=== PATIENT | female | born 1935 | race Caucasian/White ===

== ENCOUNTER 2017-12-20 17:21 | Emergency (ER) | payer OTHER ==
[~2017-12-20] VITALS: Ht 170.2 cm; Wt 56.7 kg
[~2017-12-20 17:21] MED LIST: "\\\"CHOLESTEROL MED\\\""; ACET325; ASPI81EC; CEPH500 PO; CETI10 PO; Cyclobenzaprine5 MG PO; GABAPENTIN; HYDACE5 PO; HYDHCL10; Naprosyn375 MG PO; PREG25; RXCEPH500 PO; TOPI25
[2017-12-20] MEDS ORDERED: Valtrex1000 MG PO (17:41)
== END 2017-12-20 18:08 | disposition home or self-care (01) ==
LOC: ER 17:21
DX: B02.9 Zoster without complications (principal)
CPT/HCPCS: 99282

== ENCOUNTER 2018-10-04 17:40 | Emergency (ER) | payer OTHER ==
[~2018-10-04] VITALS: Ht 170.2 cm; Wt 54.4 kg
[~2018-10-04 17:40] MED LIST changes: +Valtrex1000 MG PO
[2018-10-04] MEDS ORDERED: CLOBET30L TOP (18:28)
[2018-10-05] MEDS ORDERED: KETO15TC TOP (18:51)
[2018-10-05] MEDS ORDERED: Neurontin 100100 MG PO (18:51)
== END 2018-10-04 18:34 | disposition home or self-care (01) ==
LOC: ER 17:40
DX: B35.4 Tinea corporis (principal); Z79.899 Other long term (current) drug therapy
CPT/HCPCS: 99282

== ENCOUNTER 2018-10-05 17:58 | Emergency (ER) | payer OTHER, SELFPAY ==
[~2018-10-05] VITALS: Ht 170.2 cm; Wt 77.6 kg
[~2018-10-05 17:58] MED LIST changes: +CLOBET30L TOP
[2018-10-05] MEDS ORDERED: KETO15TC TOP (18:51)
[2018-10-05] MEDS ORDERED: Neurontin 100100 MG PO (18:51)
== END 2018-10-05 18:56 | disposition home or self-care (01) ==
LOC: ER 17:58
DX: B35.4 Tinea corporis (principal); B02.29 Other postherpetic nervous system involvement; L98.9 Disorder of the skin and subcutaneous tissue, unspecified; Z79.899 Other long term (current) drug therapy
CPT/HCPCS: 99281

== ENCOUNTER 2018-11-17 11:09 | Emergency (ER) | payer OTHER, SELFPAY ==
[~2018-11-17] VITALS: Ht 170.2 cm; Wt 56.7 kg
[~2018-11-17 11:09] MED LIST changes: +KETO15TC TOP; +Neurontin 100100 MG PO
== END 2018-11-17 11:51 | disposition home or self-care (01) ==
LOC: ER 11:09
DX: L57.0 Actinic keratosis (principal); L81.4 Other melanin hyperpigmentation; Z79.899 Other long term (current) drug therapy
CPT/HCPCS: 99283

== ENCOUNTER 2019-01-03 19:58 | Observation (INO) | payer OTHER ==
[~2019-01-03] VITALS: Ht 170.2 cm; Wt 55.8 kg
[2019-01-03 20:39] LABS: BASOPHILS ABSOLUTE AUTO 0.04 K/mm3 (0.00-0.23); BASOPHILS PERCENT AUTO 1 % (0-2); EOSINOPHILS ABSOLUTE AUTO 0.01 K/mm3 (0.00-0.68); EOSINOPHILS PERCENT AUTO 0 % (0-6); Hematocrit 33.8 % (33.0-51.0); IMMATURE GRAN ABSOLUTE AUTO 0.01 K/mm3 (0.00-0.10); IMMATURE GRAN PERCENT AUTO 0 % (0-1); LYMPHOCYTES ABSOLUTE AUTO 0.75 K/mm3 (0.84-5.20); LYMPHOCYTES PERCENT AUTO 9 % (21-46); MONOCYTES ABSOLUTE AUTO 0.51 K/mm3 (0.16-1.47); MONOCYTES PERCENT AUTO 6 % (4-13); Mean Corpuscular HGB 31.3 pg (26.0-34.0); Mean Corpuscular HGB Conc 32.5 g/dL (31.5-36.5); Mean Corpuscular Volume 96 fL (80-100); Mean Platelet Volume 9.2 fL (9.1-12.4); NEUTROPHILS ABSOLUTE AUTO 7.32 K/mm3 (1.96-9.15); NEUTROPHILS PERCENT AUTO 85 % (41-73); Platelet Count 163 K/mm3 (150-400); RDW Coefficient Variation 12.4 % (11.7-14.2); RDW Standard Deviation 43.3 fL (35.1-46.3); Red Blood Cell Count 3.52 M/mm3 (3.80-5.20); White Blood Cell Count 8.64 K/mm3 (4.00-11.30)
[2019-01-03 20:59] LABS: Alanine Aminotransfer (ALT/SGP 28 U/L (12-78); Albumin, Blood 3.5 g/dL (3.4-5.0); Albumin/Globulin Ratio 0.8 (0.8-1.8); Alk Phos 107 U/L (50-136); Anion Gap 8 mmol/L (6-16); Aspartate Aminotrans (AST/SGOT 35 U/L (12-37); Bilirubin, Total 0.3 mg/dL (0.1-1.0); Blood Urea Nitrogen 19 mg/dL (8-24); Bun/Creatinine Ratio 23.4 (12.0-20.0); CO2, Blood 26 mmol/L (21-32); CPK Creatine Kinase 624 U/L (26-193); Calcium, Blood 8.8 mg/dL (8.5-10.1); Chloride, Blood 101 mmol/L (98-108); Creatinine, Blood 0.81 mg/dL (0.40-1.00); Globulin, Blood 4.3 g/dL (2.2-4.0); Glomerular Filtration Rate >60 (60-); Glucose, Blood 144 mg/dL (70-99); Potassium, Blood 3.7 mmol/L (3.5-5.5); Sodium, Blood 135 mmol/L (136-145); Total Protein, Blood 7.8 g/dL (6.4-8.2); Troponin I <0.015 ng/mL (0.000-0.040)
[2019-01-03 21:09] LABS: Source, Urine Catheter
[2019-01-03 21:13] LABS: Bilirubin, Urine Neg (Neg); Blood, Urine Neg (Neg); Glucose Qualitative, Urine Neg (Neg); Ketones, Urine Neg (Neg); Leukocyte Esterase, Urine Neg (Neg); Nitrite, Urine Neg (Neg); Protein, Urine Neg (Neg); Urobilinogen, Urine NORM (Normal); pH, Urine 6.5 (5.0-8.0)
[2019-01-03 21:13] LABS: Creatine Kinase MB 18.8 ng/mL (0.0-3.6)
[2019-01-03 21:23] LABS: Appearance, Urine Clear (Clear); Color, Urine Yellow (P-Yellow)
--- NOTE | 2019-01-04 00:54 | NUR ---
Transfer report from Shira DAVILA on PT being admitted after multiple falls at home, lives alone. PT was found down by Son 24 hours after he saw her well at 1800. PT will have tele monitoring, PT, OT, SW referral. Await admission. PT reported to have multiple requests for warm blankets and has cool extremity. DX mild rhabdo.
[2019-01-04 06:36] LABS: Hematocrit 30.2 % (33.0-51.0); Hemoglobin 10.1 g/dL (11.5-16.0); Mean Corpuscular HGB 31.2 pg (26.0-34.0); Mean Corpuscular HGB Conc 33.4 g/dL (31.5-36.5); Mean Platelet Volume 9.2 fL (9.1-12.4); Platelet Count 143 K/mm3 (150-400); RDW Coefficient Variation 12.4 % (11.7-14.2); RDW Standard Deviation 42.5 fL (35.1-46.3); Red Blood Cell Count 3.24 M/mm3 (3.80-5.20); White Blood Cell Count 5.56 K/mm3 (4.00-11.30)
[2019-01-04 06:55] LABS: Alanine Aminotransfer (ALT/SGP 21 U/L (12-78); Albumin/Globulin Ratio 0.9 (0.8-1.8); Alk Phos 90 U/L (50-136); Anion Gap 7 mmol/L (6-16); Aspartate Aminotrans (AST/SGOT 30 U/L (12-37); Bilirubin, Total 0.2 mg/dL (0.1-1.0); Blood Urea Nitrogen 16 mg/dL (8-24); Bun/Creatinine Ratio 19.6 (12.0-20.0); CO2, Blood 25 mmol/L (21-32); Calcium, Blood 8.2 mg/dL (8.5-10.1); Chloride, Blood 108 mmol/L (98-108); Creatinine, Blood 0.82 mg/dL (0.40-1.00); Globulin, Blood 3.4 g/dL (2.2-4.0); Glomerular Filtration Rate >60 (60-); Glucose, Blood 114 mg/dL (70-99); Potassium, Blood 3.6 mmol/L (3.5-5.5); Sodium, Blood 140 mmol/L (136-145); Total Protein, Blood 6.4 g/dL (6.4-8.2)
[2019-01-04 07:00] LABS: Mean Corpuscular Volume 93 fL (80-100)
--- NOTE | 2019-01-04 07:21 | NUR ---
83 YEAR OLD fEMALE ADMITTED WITH MULTIPLE FALLS, FOUND DOWN FOR UNKNOWN LEGHT OF TIME AND PT VERY POOR HISTORIAN. sHE IS ON IV FLUIDS TOLERATED WITHOUT NAUSEA. MULTIPLE REQUESTS, WANTS TO HAVE 1 ON 1.V REORIENTED
--- NOTE | 2019-01-04 19:13 | NUR ---
SHIFT SUMMARY PT BLADDER SCANNED WITH 400-600ML SEVERAL TIMES TODAY AFTER VOIDING. DID MANAGE TO STRAIGHT CATH PT THIS AFTERNOON FOR 600ML AFTER VOIDING 700ML AND GETTING A PVR OF 480ML. BECAME VERY DISTRESSED WITH CATH BUT TOLERATED WELL AFTER PLACED FOR DRAINAGE. REPEATS HER QUESTIONS AND COMMENTS FREQUENTLY. SPOKE WITH DAUGHTER ABOUT CONCERNS OF BLADDEER RETENTION AND CONFUSION. UP TO CHAIR FOR LUNCH. WAS IRRITABLE AFTER LUNCH TODAY AFTER SON IN LAW LEFT SAYING SOME MAN SHE DIDN'T KNOW WAS HERE. NEEDS FREQUENT REDIRECTION AND REMINDING OF PREVIOUSLY SPOKEN INSTRUCTIONS.
--- NOTE | 2019-01-04 22:25 | NUR ---
PT was anxoius and demanding, hollers at staff [facility] have addressed her needs that we are not allowed to leave her in room. She asked for phone book wanted to call Grandson around 1940 and then she recieved a phone call and she spoke to caller then was more agitated. This RN out to floor for a few minutes and PT dressed and pulled her IV out which was running. She then figured out how to leave locked unit by pushing on door that alarms. She was ovserved and security called and PT refused to return to her room. she repeatedly said she was unwilling to stay at the hospital and she was discharged AMA after she spent about 1 hour refusing to stay. She had removed her saline lock and personal belongings sent home with her. She was picked up by a Family member. I never discussed her ability to drive but day RN said she still drives and lives alone. My DAVILA assisted with AMA discharge.
== END 2019-01-04 21:09 | disposition left against medical advice (07) ==
LOC: ER 19:58 → MEDS 19:59
PROVIDERS: Physician Assistant; ADMIT Internal Medicine
DX: T79.6XXA Traumatic ischemia of muscle, initial encounter (principal); G93.40 Encephalopathy, unspecified; E86.0 Dehydration; I10 Essential (primary) hypertension; R29.6 Repeated falls; Z79.899 Other long term (current) drug therapy; W19.XXXA Unspecified fall, initial encounter
CPT/HCPCS: 36415; 70450; 71046; 80053; 81003; 82550; 82553; 84484; 85025; 85027; 93005; 93010; 96360; 96361; 96372; 97116; 97161; 97166; 97535; 99285-25; G0378; J1650; J7030; P9612

== ENCOUNTER → 2019-02-11 | Outpatient (CLI) | payer OTHER ==
[~2019-02-11] MED LIST changes: +Bactrim Ds Tab1 EACH PO
== END ==
LOC: LAB 19:28 → LAB SHORT 19:28
DX: R82.90 Unspecified abnormal findings in urine (principal)
CPT/HCPCS: 87077; 87086; 87186

== ENCOUNTER 2019-07-09 18:58 | Inpatient (IN) | payer OTHER ==
[~2019-07-09] VITALS: Ht 170.2 cm; Wt 54.2 kg
[~2019-07-09 18:58] MED LIST changes: +ACET325 PO; +GABA300 PO; +HYDHCL25 PO; +MELATONIN5 M1 PO; +NEURONTIN300 MG PO; +Simvastatin40 MG PO
[2019-07-09 19:38] LABS: BASOPHILS ABSOLUTE AUTO 0.02 K/mm3 (0.00-0.23); BASOPHILS PERCENT AUTO 0 % (0-2); EOSINOPHILS ABSOLUTE AUTO 0.01 K/mm3 (0.00-0.68); EOSINOPHILS PERCENT AUTO 0 % (0-6); Hematocrit 35.4 % (33.0-51.0); Hemoglobin 11.9 g/dL (11.5-16.0); IMMATURE GRAN ABSOLUTE AUTO 0.03 K/mm3 (0.00-0.10); IMMATURE GRAN PERCENT AUTO 0 % (0-1); LYMPHOCYTES ABSOLUTE AUTO 0.48 K/mm3 (0.84-5.20); LYMPHOCYTES PERCENT AUTO 5 % (21-46); MONOCYTES ABSOLUTE AUTO 0.76 K/mm3 (0.16-1.47); MONOCYTES PERCENT AUTO 8 % (4-13); Mean Corpuscular HGB Conc 33.6 g/dL (31.5-36.5); Mean Corpuscular Volume 95 fL (80-100); Mean Platelet Volume 9.5 fL (9.1-12.4); NEUTROPHILS ABSOLUTE AUTO 8.54 K/mm3 (1.96-9.15); NEUTROPHILS PERCENT AUTO 87 % (41-73); Platelet Count 136 K/mm3 (150-400); RDW Coefficient Variation 14.2 % (11.7-14.2); RDW Standard Deviation 49.7 fL (35.1-46.3); Red Blood Cell Count 3.72 M/mm3 (3.80-5.20); White Blood Cell Count 9.84 K/mm3 (4.00-11.30)
[2019-07-09 19:48] LABS: Alanine Aminotransfer (ALT/SGP 18 U/L (12-78); Albumin, Blood 3.6 g/dL (3.4-5.0); Albumin/Globulin Ratio 0.9 (0.8-1.8); Alk Phos 76 U/L (50-136); Anion Gap 5 mmol/L (6-16); Aspartate Aminotrans (AST/SGOT 24 U/L (12-37); Bilirubin, Total 0.6 mg/dL (0.1-1.0); Blood Urea Nitrogen 17 mg/dL (8-24); Bun/Creatinine Ratio 21.5 (12.0-20.0); CO2, Blood 25 mmol/L (21-32); Calcium, Blood 8.8 mg/dL (8.5-10.1); Chloride, Blood 101 mmol/L (98-108); Creatinine, Blood 0.79 mg/dL (0.40-1.00); Globulin, Blood 3.9 g/dL (2.2-4.0); Glomerular Filtration Rate >60 (60-); Glucose, Blood 126 mg/dL (70-99); Potassium, Blood 3.3 mmol/L (3.5-5.5); Sodium, Blood 131 mmol/L (136-145); Total Protein, Blood 7.5 g/dL (6.4-8.2)
[2019-07-09 20:22] LABS: Source, Urine Catheter
[2019-07-09 20:25] LABS: Bilirubin, Urine Neg (Neg); Blood, Urine Neg (Neg); Glucose Qualitative, Urine Neg (Neg); Ketones, Urine 1+ (Neg); Leukocyte Esterase, Urine Neg (Neg); Nitrite, Urine Neg (Neg); Protein, Urine Neg (Neg); Urobilinogen, Urine NORM (Normal)
[2019-07-09 20:26] LABS: Appearance, Urine Clear (Clear); Color, Urine Yellow (P-Yellow)
[2019-07-09 21:04] LABS: Influenza A Negative (NEGATIVE); Influenza B Negative (NEGATIVE)
[2019-07-09 23:52] LABS: Adenovirus Not Detected (NOT DETECT); Coronavirus 229E Not Detected (NOT DETECT); Coronavirus HKU1 Not Detected (NOT DETECT); Coronavirus NL63 Not Detected (NOT DETECT)
[2019-07-09 23:53] LABS: Bordetella pertussis Not Detected (NOT DETECT); Chlamydophila pneumoniae Not Detected (NOT DETECT); Coronavirus OC43 Not Detected (NOT DETECT); Human Metapneumovirus Not Detected (NOT DETECT); Human Rhinovirus/Enterovirus Not Detected (NOT DETECT); Influenza A/2009-H1 Not Detected (NOT DETECT); Influenza A/H1 Not Detected (NOT DETECT); Influenza A/H3 Not Detected (NOT DETECT); Influenza B Not Detected (NOT DETECT); Mycoplasma pneumoniae Not Detected (NOT DETECT); Parainfluenza Virus 1 Not Detected (NOT DETECT); Parainfluenza Virus 2 Not Detected (NOT DETECT); Parainfluenza Virus 3 Not Detected (NOT DETECT); Parainfluenza Virus 4 Not Detected (NOT DETECT); Respiratory Syncytial Virus Detected (NOT DETECT)
--- NOTE | 2019-07-10 01:00 | NUR ---
REPORT RECIEVED FROM JOAN GRAHAM IT APPLICATION SUPPORT ANALYST AT 0022 AND PT T/F TO ROOM 305 VIA BED 0048. DROPLET ISOLATION W/COVID-[address] PER PROTOCOL FOR R/O COVID-19, WILL OBTAIN SPECIMENS PER RX. SHE'S A/OX2-SELF/SURROUNDINGS BUT FORGETFUL OTHERWISE. BED ALARM ON AND PT ORIENTED TO ROOM AND CALL SYSTEM, WILL INCREASE ROUNDING. NS W/20 KCL INFUSING AND IV ABX BEING RECIEVED. PT WAS RSV (+) AND FLU (-) IN ER. POSSIBLE R.MIDDLE AND LOWER LOBE NOTED PER CXR. NO S/S RESP DISTRESS OBSERVED AT THIS TIME, LS CLEAR/DIM IN BASES AND SPO2 WNL ON RA. PT AMBULATED W/SBA FROM GURNEY TO BED, NO DSYPNEA OBSERVED. VSS/AFEBRILE UPON ARRIVAL. WCTM AND MED PER EMAR.
--- NOTE | 2019-07-10 01:33 | NUR ---
CANCELLED COVID-19 COLLECTION ON ACCOUNT OF PT TESTING (+) FOR RSV AND W/O ANY S/S RESPIRATORY DISTRESS AT THIS TIME. TEMP NOW 98.0 W/SPO2 93% ON RA W/OCCASIONAL SALES REPRESENTATIVE PRINTING SUPPLIES COUGH OBSERVED. RESPS E/U BUT ARE SHALLOW AND SLIGHTLY TACHPNEIC AT 18-21 RESPS/MIN. WCTM CLOSELY FOR CHANGES AND WORSENING S/S RESP DISTRESS AND ALERT MD KEEN.
--- NOTE | 2019-07-10 01:40 | NUR ---
HAS NOW ORDERED COVID-19 COLLECTION ONCE AGAIN AFTER FURTHER DISCUSSION W/ER CONCERNING LUNG CT RESULTS. SHE INSTRUCTED STAFF TO OBTAIN SPUTUM SPECIMEN VIA FLUTTER VALVE, NT SUCTION OR VIA BRONCHIAL ALVEOLAR LAVAGE W/PULM REQUIRED. SHE REITTERATED THAT SPECIMENS SHOULD BE COLLECTED COVID TRANSMISSION CANNOT BE RULED OUT AT THIS TIME. WILL ALERT RT AND DIRECTOR OF CORPORATE REAL ESTATE.
--- NOTE | 2019-07-10 01:55 | NUR ---
INSTRUCTED TO HOLD OFF ON FLU AN PNM VACCINE ADMINISTRATION AT THIS TIME AND FOCUS ON COVID 19 SPECIMEN COLLECTION TONIGHT. PT IS CONFUSED AND ISN'T AWARE IF VACCINES HAVE ALREADY BEEN RECIEVED. SHE WANTS MD'S TO REEVALUATE VACCINATION NEEDS IN THE MORNING.
--- NOTE | 2019-07-10 02:45 | NUR ---
COVID-19 SPECIMENS OBTAINED AND DELIVERED TO LAB. RT PERFORMED NT SUCTION FOR SPUTUM D/T PT INABILITY TO PROVIDE SAMPLE DESPITE FLUTTER ATTEMPTS TO LOOSEN AND EXPEL SECRETIONS. THIS RN OBTAINED MOUTH AND NARES SPECIMENS AT THIS SAME TIME. RESULTS PENDING AND ISOLATIONS PRECAUTIONS REMAIN IN PLACE PER PROTOCOL.
[2019-07-10 05:09] LABS: BASOPHILS ABSOLUTE AUTO 0.03 K/mm3 (0.00-0.23); BASOPHILS PERCENT AUTO 0 % (0-2); EOSINOPHILS ABSOLUTE AUTO 0.04 K/mm3 (0.00-0.68); EOSINOPHILS PERCENT AUTO 0 % (0-6); Hematocrit 31.8 % (33.0-51.0); Hemoglobin 10.3 g/dL (11.5-16.0); IMMATURE GRAN ABSOLUTE AUTO 0.03 K/mm3 (0.00-0.10); IMMATURE GRAN PERCENT AUTO 0 % (0-1); LYMPHOCYTES ABSOLUTE AUTO 1.29 K/mm3 (0.84-5.20); LYMPHOCYTES PERCENT AUTO 14 % (21-46); MONOCYTES PERCENT AUTO 8 % (4-13); Mean Corpuscular HGB 30.9 pg (26.0-34.0); Mean Corpuscular HGB Conc 32.4 g/dL (31.5-36.5); Mean Corpuscular Volume 96 fL (80-100); NEUTROPHILS ABSOLUTE AUTO 6.94 K/mm3 (1.96-9.15); NEUTROPHILS PERCENT AUTO 77 % (41-73); Platelet Count 109 K/mm3 (150-400); RDW Coefficient Variation 14.6 % (11.7-14.2); RDW Standard Deviation 50.4 fL (35.1-46.3); Red Blood Cell Count 3.33 M/mm3 (3.80-5.20); White Blood Cell Count 9.03 K/mm3 (4.00-11.30)
[2019-07-10 05:38] LABS: Anion Gap 6 mmol/L (6-16); Blood Urea Nitrogen 17 mg/dL (8-24); Bun/Creatinine Ratio 18.3 (12.0-20.0); CO2, Blood 25 mmol/L (21-32); Calcium, Blood 8.2 mg/dL (8.5-10.1); Chloride, Blood 107 mmol/L (98-108); Creatinine, Blood 0.93 mg/dL (0.40-1.00); Glomerular Filtration Rate >60 (60-); Glucose, Blood 104 mg/dL (70-99); Potassium, Blood 4.4 mmol/L (3.5-5.5); Sodium, Blood 138 mmol/L (136-145)
--- NOTE | 2019-07-10 06:33 | NUR ---
SUMMARY: PT IS A/OX2 TO SELF, FAMILY AND SURROUNDINGS BUT IS VERY FORGETFULL AND A POOR HISTORIAN. SHE WAS UNABLE TO SPECIFY MEDICATION DOSES SO MED REC WILL NEED COMPLETED. PT USES [facility], WILL ENSURE DAY STAFF ARE AWARE. BED ALARM ARMED D/T IMPULISVITY, DECONDITIONING AND HX OF FALLS. PT USED BSC W/1P ASSIST, FWW AND GAIT BELT. FLU SWAB WAS (-) BUT RESP PANEL WAS (+) FOR RSV. COVID-19 SPECIMENS WERE OBTAINED AND SENT, RESULTS PENDING. SHE REMAINS IN COVID-19 DROPLET ISOLATION PER PROTOCOL. LS ARE CLEAR BUT DIMINISHED T/O. SPO2 WNL ON RA AND RESPS ARE E/U BUT SHALLOW/TACHY AT TIMES. SHE HAS A MOIST MANAGER NC COUGH SO COVID SPUTUM SPECIMEN WAS OBTAINED VIA NT SUCTION BY RT. FLU AND PNM VACCINES WERE RX'D BUT PLACED ON MD HOLD, PT WAS UNSURE IF SHE'D HAD THEM AND WANTED TO FOCUS ON R/O COVID-19. SHE'S BEEN AFEBRILE SINCE ARRIVAL TO FLOOR AND ALL OTHER VSS. NS W/20KCL INFUSING AND KRIDERS WERE RECIEVED THIS SHIFT. K WAS 3.3, NOW 4.4 AND NS IMPROVED TO 138. TYLENOL WAS GIVEN FOR TOLERABLE RELIEF OF ALEXANDER THAT SHE STATES IS FROM "SHINGLES", THOUGH NO CURRENT OUTBREAK OR LESIONS OBSERVED. NO ACUTE CHANGES, VSS/AFEBRILE. WCTM AND REPORT TO DAY RN.
--- NOTE | 2019-07-10 18:49 | NUR ---
SHIFT SUMMARY PT AXO TO SELF AND PLACE, THOUGH GROWING INCREASINGLY CONFUSED SHIFT GOES ON. VSS. PT'S DAUGHTER STATES THAT PATIENT LIVES ALONE. PT IS NOT ABLE TO REMEMBER A CONVERSATION THAT JUST OCCURRED. PT GOING INCREASINGLY FRUSTRATED WELL. PT PULLED IV. PT COMPLAINED OF COUGH, NEW ORDERS PLACED AND PT MEDICATED PER EMAR. BED IN LOW POSITION, CALL LIGHT WITHIN REACH THOUGH PT SETS OFF BED ALARM FREQUENTLY. PT TO TRANSFER TO SCU AFTER SHIFT CHANGE. ZULMA ORDERED AT 1845 FOR PATIENT SAFETY
--- NOTE | 2019-07-10 21:43 | NUR ---
[id number]: TOOK REPORT ON PATIENT AND THEN GAVE REPORT TO SCU RODRÍGUEZ NURSE BRIAN MOTA RN. WHEN I WENT INTO THE ROOM TO GATHER HER BELONGINGS SHE HAD UNTIED HER RESTRAINTS AND WAS AMBULATING AROUND HER BED, HAD SPILLED HER WATER OVER THE FLOOR. HELPED HER BACK TO BED AND TRANSFERRED PATIENT TO ROOM 346
--- NOTE | 2019-07-11 04:24 | NUR ---
SHIFT SUMMARY PT XFER'D TO 346 @ 1999, PT HAS BEEN CONFUSED AND FORGETFUL, GETS FRUSTRATED AND IRRITABLE WHEN REMINDED THEN DOES NOT RECALL THE CONVERSATION THAT JUST OCCURED. PT IN VEST BUT HAS SET OFF BED ALARM T/O NIGHT AND ATTEMPTS TO REMOVE VEST. PT HAS BEEN CONTINENT AND ST BY ASSIST TO BSC, PT COMPLAINED ABOUT IV BEING UNCOMFORTABLE (IV FLUSHES EASILY W/BLOOD RETURN), AFTER SEVERAL COMPLAINTS PT STILL REFUSED TO HAVE SITE CHANGED, STATED SHE "JUST WANTS IT OUT WITH NO NEW ONE", DAUGHTER CALLED TO CHECK ON PATIENT @ 2200, SPOKE W/PT & THIS RN, PT SLEEPING AT THIS TIME, CALL LIGHT IN REACH, ALARM IN PLACE, WILL CONT TO MONITOR UNTIL REPORT GIVEN TO DAY RN.
--- NOTE | 2019-07-11 07:00 | NUR ---
ASSUMED CARE OF PT- REPORT COMPLETED WITH NIGHT RN BRIAN. BEDSIDE REPORT NOT COMPLETED D/T ENHANCED ISOLATION TO R/O COVID-19. PT IS IN DROPLET IOSLATION FOR RSV AND CT SCAN SHOWS PNEUMONIA. PT IN A ZULMA VEST FOR SAFETY SHE IS VERY FORGETFUL AND IMPULSIVE; WITH THE ENHANCED ISOLATION TAKING TIME FOR STAFF TO RESPOND, CALLED NURSING RN DOCUMENT IMPROVEMENT SPECIALIST TO HAVE THE PT PLACED ON THE MONITORS WELL FOR ADDITIONAL SAFETY.
--- NOTE | 2019-07-11 09:00 | NUR ---
PT VERY FRUSTRATED ABOUT BEING STUCK IN BED ASSISTED HER TO THE CHAIR TIED THE ZULMA FOR SAFETY CHAIR ALARM IN PLACE. PT C/O NEEDING A SHOWER ASSISTED HER WITH A SHOWER CAP AND PROVIDED A COMB. PT MOVED THE CHAIR ACROSS THE ROOM (SCOOTING) CONCERN FOR SAFETY; STAFF TRANSFERED THE PT TO A RECLINER TO PREVENT HER FROM TIPPING THE SMALLER CHAIR OVER. PT WANTS TO GO HOME, ASSISTED HER TO MAKE A PHONE CALL TO HER DAUGHTER PER HER REQUEST. REDIRECTION IS DIFFICULT THE PT FORGETS THE REDIRECTION SOON IT IS COMPLETED.
--- NOTE | 2019-07-11 11:00 | NUR ---
RECIEVED A CALL FROM DIRECTOR OF INSTRUCTIONAL TECHNOLOGY LAUREL, PT SEND OUT TEST FOR COVID-19 WAS NEGATIVE, CALLED DR HANSEN, PER HER REQUEST, WITH THE RESULT. POTENTIAL FOR PT TO DC TODAY, WILL CTM. PT IN THE SHOWER AT THIS TIME.
[2019-07-11 11:19] LABS: Performing Lab STATE LAB; Test Name COVID-19
[2019-07-11] MEDS ORDERED: Florastor250 MG PO (14:00)
[2019-07-11] MEDS ORDERED: AMOCLA875 PO (14:00)
--- NOTE | 2019-07-11 15:39 | NUR ---
DISCHARGE NOTE- PT DAUGHTER PICKED HER UP AT THE [facility], PT IV WAS DC'D PRIOR TO DISCHARGE. PT DAUGHTER IS AWARE THE PT HAS ABX AT [facility] TO HEALTH INFORMATION TECHNOLOGIST. PT WAS TAKEN OUT VIA WC BY GIOVANNI SPAULDING AND DISCHARGE PAPERS WERE SIGNED BY THE DAUGHTER WHO MET JASSON AT THE DOOR. NO FURTHER QUESTIONS AT THE TIME OF DISCHARGE.
[2019-07-17] MEDS ORDERED: ZOCOR20 MG PO (17:09)
[2019-07-18] MEDS ORDERED: ASPI81CH PO (16:01)
[2019-07-18] MEDS ORDERED: LEVE500 PO (16:02)
== END 2019-07-11 15:27 | disposition home health service (06) | DRG 871 ==
LOC: ER 18:58 → MEDS 22:43 → ENPENDDIS 07-11 12:04 → MEDS 07-11 15:27
PROVIDERS: Nurse Practitioner Acute Care; Physician Assistant; ADMIT Internal Medicine
DX: A41.89 Other specified sepsis (principal); J12.1 Respiratory syncytial virus pneumonia; E87.1 Hypo-osmolality and hyponatremia; E46 Unspecified protein-calorie malnutrition; Z68.1 Body mass index [BMI] 19.9 or less, adult; B97.4 Respiratory syncytial virus as the cause of diseases classified elsewhere; D69.6 Thrombocytopenia, unspecified; D64.9 Anemia, unspecified; F03.90 Unspecified dementia, unspecified severity, without behavioral disturbance, psychotic disturbance, mood disturbance, and anxiety; E87.6 Hypokalemia; G47.00 Insomnia, unspecified; E78.5 Hyperlipidemia, unspecified; F41.9 Anxiety disorder, unspecified; E55.9 Vitamin D deficiency, unspecified
CPT/HCPCS: 0099U; 31720; 36415; 71045; 71250; 80048; 80053; 81003; 83605; 84145; 85025; 87040; 87077; 87086; 87186; 87804; 93005; 93010; 94667; 94762; 96365; 96367; 96368; 97110; 97161; 99285-25; A9270; A9270-GY; J0456; J0696; J3480; J7050; J7120; U0001

== ENCOUNTER 2019-07-15 12:31 | Emergency (ER) | payer OTHER ==
[~2019-07-15] VITALS: Ht 170.2 cm; Wt 56.7 kg
[~2019-07-15 12:31] MED LIST changes: +AMOCLA875 PO; +Florastor250 MG PO
[2019-07-15 12:58] LABS: BASOPHILS ABSOLUTE AUTO 0.05 K/mm3 (0.00-0.23); BASOPHILS PERCENT AUTO 1 % (0-2); EOSINOPHILS ABSOLUTE AUTO 0.14 K/mm3 (0.00-0.68); EOSINOPHILS PERCENT AUTO 3 % (0-6); Hematocrit 35.1 % (33.0-51.0); Hemoglobin 11.1 g/dL (11.5-16.0); IMMATURE GRAN ABSOLUTE AUTO 0.02 K/mm3 (0.00-0.10); IMMATURE GRAN PERCENT AUTO 0 % (0-1); LYMPHOCYTES ABSOLUTE AUTO 1.92 K/mm3 (0.84-5.20); LYMPHOCYTES PERCENT AUTO 37 % (21-46); MONOCYTES ABSOLUTE AUTO 0.51 K/mm3 (0.16-1.47); MONOCYTES PERCENT AUTO 10 % (4-13); Mean Corpuscular HGB 31.3 pg (26.0-34.0); Mean Corpuscular HGB Conc 31.6 g/dL (31.5-36.5); Mean Platelet Volume 9.6 fL (9.1-12.4); NEUTROPHILS ABSOLUTE AUTO 2.55 K/mm3 (1.96-9.15); NEUTROPHILS PERCENT AUTO 49 % (41-73); Platelet Count 165 K/mm3 (150-400); RDW Standard Deviation 51.7 fL (35.1-46.3); Red Blood Cell Count 3.55 M/mm3 (3.80-5.20); White Blood Cell Count 5.19 K/mm3 (4.00-11.30)
[2019-07-15 13:00] LABS: Mean Corpuscular Volume 99 fL (80-100)
[2019-07-15 13:15] LABS: Alanine Aminotransfer (ALT/SGP 25 U/L (12-78); Albumin, Blood 3.4 g/dL (3.4-5.0); Albumin/Globulin Ratio 0.8 (0.8-1.8); Alk Phos 82 U/L (50-136); Anion Gap 8 mmol/L (6-16); Aspartate Aminotrans (AST/SGOT 25 U/L (12-37); Bilirubin, Total 0.3 mg/dL (0.1-1.0); Blood Urea Nitrogen 24 mg/dL (8-24); Bun/Creatinine Ratio 22.2 (12.0-20.0); CO2, Blood 23 mmol/L (21-32); Calcium, Blood 8.9 mg/dL (8.5-10.1); Chloride, Blood 107 mmol/L (98-108); Creatinine, Blood 1.08 mg/dL (0.40-1.00); Globulin, Blood 4.3 g/dL (2.2-4.0); Glomerular Filtration Rate 51 (60-); Glucose, Blood 113 mg/dL (70-99); Potassium, Blood 3.9 mmol/L (3.5-5.5); Sodium, Blood 138 mmol/L (136-145); Total Protein, Blood 7.7 g/dL (6.4-8.2); Troponin I <0.015 ng/mL (0.000-0.040)
== END 2019-07-15 16:20 | disposition home or self-care (01) ==
LOC: ER 12:31
PROVIDERS: Emergency Medicine
DX: R56.9 Unspecified convulsions (principal); F03.90 Unspecified dementia, unspecified severity, without behavioral disturbance, psychotic disturbance, mood disturbance, and anxiety; F41.9 Anxiety disorder, unspecified; M81.0 Age-related osteoporosis without current pathological fracture; G62.9 Polyneuropathy, unspecified; Z79.899 Other long term (current) drug therapy
CPT/HCPCS: 70450; 80053; 84484; 85025; 93005; 93010; 96360; 99285-25; J7030

== ENCOUNTER 2019-07-15 21:01 | Observation (INO) | payer OTHER ==
[~2019-07-15] VITALS: Ht 170.2 cm; Wt 52.4 kg
[2019-07-15 21:45] LABS: BASOPHILS ABSOLUTE AUTO 0.04 K/mm3 (0.00-0.23); BASOPHILS PERCENT AUTO 1 % (0-2); EOSINOPHILS ABSOLUTE AUTO 0.14 K/mm3 (0.00-0.68); EOSINOPHILS PERCENT AUTO 3 % (0-6); Hemoglobin 10.6 g/dL (11.5-16.0); IMMATURE GRAN ABSOLUTE AUTO 0.01 K/mm3 (0.00-0.10); IMMATURE GRAN PERCENT AUTO 0 % (0-1); LYMPHOCYTES ABSOLUTE AUTO 1.68 K/mm3 (0.84-5.20); LYMPHOCYTES PERCENT AUTO 32 % (21-46); MONOCYTES ABSOLUTE AUTO 0.63 K/mm3 (0.16-1.47); MONOCYTES PERCENT AUTO 12 % (4-13); Mean Corpuscular HGB 31.8 pg (26.0-34.0); Mean Corpuscular HGB Conc 33.1 g/dL (31.5-36.5); Mean Platelet Volume 9.4 fL (9.1-12.4); NEUTROPHILS ABSOLUTE AUTO 2.73 K/mm3 (1.96-9.15); NEUTROPHILS PERCENT AUTO 52 % (41-73); Platelet Count 179 K/mm3 (150-400); RDW Standard Deviation 49.2 fL (35.1-46.3); Red Blood Cell Count 3.33 M/mm3 (3.80-5.20); White Blood Cell Count 5.23 K/mm3 (4.00-11.30)
[2019-07-15 21:48] LABS: Mean Corpuscular Volume 96 fL (80-100)
[2019-07-15 22:03] LABS: Albumin, Blood 3.1 g/dL (3.4-5.0); Albumin/Globulin Ratio 0.7 (0.8-1.8); Bilirubin, Total 0.2 mg/dL (0.1-1.0); Bun/Creatinine Ratio 20.8 (12.0-20.0); Calcium, Blood 8.7 mg/dL (8.5-10.1); Creatinine, Blood 1.06 mg/dL (0.40-1.00); Globulin, Blood 4.2 g/dL (2.2-4.0); Potassium, Blood 3.9 mmol/L (3.5-5.5); Total Protein, Blood 7.3 g/dL (6.4-8.2)
[2019-07-16 00:37] LABS: Magnesium, Blood 2.2 mg/dL (1.6-2.4)
--- NOTE | 2019-07-16 02:33 | NUR ---
PHYSICIAN COMMUNICATION CONTACTED THE MANAGEMENT TRAINEE MARKETING PHYSICIAN THAT THE PATIENT HAD A RECENT DIAGNOSIS OF RSV AND ASKED IF SHE COULD GET A RESPIRATORY PANNEL TO RULE IT OUT. DR LAGOS ORDERED THE TEST.
--- NOTE | 2019-07-16 04:52 | NUR ---
SHIFT SUMMARY PATIENT ARRIVED TO THE UNIT ON A STRETCHER AT 0049. SHE IS A POOR HISTORIAN OF HER PAST MEDICAL HISTORY AND IS NOT FULLY AWARE OF WHAT HAS BROUGHT HER INTO THE HOSPITAL. IV PATENT AND CURRENTLY INFUSING WITH NORMAL SALINE AT 75 ML/HR. ATTEMPTED TO OBTAIN A SAMPLE FOR THE RESPIRATORY PANNEL AND THE PATIENT REFUSED TO HAVE THE SWAB INSERTED INTO HER NOSE. BED IN LOWEST POSITION WITH WHEELS LOCKED AND ALARM ON. CALL LIGHT WITHIN REACH. REPORT GIVEN TO ONCOMING RN.
[2019-07-16 06:35] LABS: Source, Urine Clean Catch
[2019-07-16 06:54] LABS: Bilirubin, Urine Neg (Neg); Blood, Urine Neg (Neg); Glucose Qualitative, Urine Neg (Neg); Ketones, Urine Neg (Neg); Leukocyte Esterase, Urine Neg (Neg); Nitrite, Urine Neg (Neg); Protein, Urine Neg (Neg); Urobilinogen, Urine NORM (Normal)
[2019-07-16 07:01] LABS: Appearance, Urine Clear (Clear); Color, Urine Yellow (P-Yellow)
[2019-07-16 09:11] LABS: Adenovirus Not Detected (NOT DETECT); Coronavirus 229E Not Detected (NOT DETECT); Coronavirus HKU1 Not Detected (NOT DETECT); Coronavirus NL63 Not Detected (NOT DETECT); Coronavirus OC43 Not Detected (NOT DETECT)
[2019-07-16 09:12] LABS: Bordetella pertussis Not Detected (NOT DETECT); Chlamydophila pneumoniae Not Detected (NOT DETECT); Human Metapneumovirus Not Detected (NOT DETECT); Human Rhinovirus/Enterovirus Not Detected (NOT DETECT); Influenza A/2009-H1 Not Detected (NOT DETECT); Influenza A/H1 Not Detected (NOT DETECT); Influenza A/H3 Not Detected (NOT DETECT); Influenza B Not Detected (NOT DETECT); Mycoplasma pneumoniae Not Detected (NOT DETECT); Parainfluenza Virus 1 Not Detected (NOT DETECT); Parainfluenza Virus 2 Not Detected (NOT DETECT); Parainfluenza Virus 3 Not Detected (NOT DETECT); Parainfluenza Virus 4 Not Detected (NOT DETECT); Respiratory Syncytial Virus Not Detected (NOT DETECT)
[2019-07-16 10:32] LABS: Hematocrit 32.3 % (33.0-51.0); Hemoglobin 10.6 g/dL (11.5-16.0); Mean Corpuscular HGB 30.7 pg (26.0-34.0); Mean Corpuscular HGB Conc 32.8 g/dL (31.5-36.5); Mean Corpuscular Volume 94 fL (80-100); Mean Platelet Volume 9.4 fL (9.1-12.4); Platelet Count 180 K/mm3 (150-400); RDW Standard Deviation 47.5 fL (35.1-46.3); Red Blood Cell Count 3.45 M/mm3 (3.80-5.20); White Blood Cell Count 5.25 K/mm3 (4.00-11.30)
[2019-07-16 10:50] LABS: Albumin/Globulin Ratio 0.8 (0.8-1.8); Bilirubin, Total 0.3 mg/dL (0.1-1.0); Bun/Creatinine Ratio 16.7 (12.0-20.0); Calcium, Blood 8.6 mg/dL (8.5-10.1); Creatinine, Blood 0.96 mg/dL (0.40-1.00); Potassium, Blood 3.5 mmol/L (3.5-5.5)
--- NOTE | 2019-07-16 11:24 | NUR ---
ECHOCARDIOGRAM COMPLETED
--- NOTE | 2019-07-16 15:57 | NUR ---
RECEIVED REPORT FROM ALYCE DAVILA. PATIENT WAS TRANFERED TO ROOM 351 @ 1545 AND SITUATED IN BEDSIDE RECLINER.
--- NOTE | 2019-07-16 17:15 | NUR ---
PATIENT HAS BEEN DIFFICULT SINCE ARRIVING TO ROOM 351. PATIENT CONTINUES TO GET UP FROM BEDSIDE RECLINER AND BED AND SETTING OFF THE ALARMS. SHE HAS SHORT TERM MEMORY LOSS AND CONVERSATIONS BETWEEN US ARE VERY REPETITIOUS. PATIENT HAS MADE IT CLEAR THAT SHE DOES NOT WANT TO BE HERE AND WANTS TO GO HOME. VERY ATTENTION SEEKING. VITALS HAVE BEEN STABLE. WILL CONTINUE TO REMIND PATIENT TO USE HER CALL LIGHT FOR STAFF ASSIST. WILL CONTINUE TO MONITOR AND PROVIDE CARE NEEDED.
--- NOTE | 2019-07-17 04:22 | NUR ---
SHIFT SUMMARY ALERT, ABLE TO MAKE NEEDS KNOWN. COOPERATIVE BUT RESISTANT AT TIMES WITH CARE. VERY EAGER TO GO HOME THIS DAY. NO SEIZURE ACTIVITY THIS SHIFT. WONDERS WITH STEADY GAIT IN ROOM AND HALLWAY. CONTINUES WITH LOOPING/REPETITIVE QUESTIONS. HUNTS DOWN RN TO REPEAT QUESTIONS. APPEARED TO REST SOME OF SHIFT. VSS/AFEBRILE. NO ACUTE CHANGES NOTED OVERNIGHT. BED IN LOWEST POSITION. CALL LIGHT AND BELONGINGS WITHIN REACH. WCTM.
--- NOTE | 2019-07-17 09:36 | NUR ---
PATIENT UNWILLING TO ALLOW ME TO FLUSH HER IV TO ASSESS IT.
--- NOTE | 2019-07-17 11:57 | NUR ---
PATIENT CONTINUES TO BE VERY AGGITATED AND WONDERING THE RODRÍGUEZ. SHE REPEATEDLY STATES THAT WE NEED TO LET HER GO HOME AND WE HAVE "NO AUTHORITY" OVER HER" SHE HAS BEEN DOING THIS ALL MORNING. I CALLED DR JEAN AT 1153 AND ASKED IF WE COULD HAVE SOMETHING TO HELP CALM TO PATIENT DOWN AND HE PROVIDED NEW ORDERS PER EMAR.
--- NOTE | 2019-07-17 15:59 | NUR ---
THIS PATIENT IS VERY CONFUSED AND HAS A VERY SHORT TERM MEMORY. SHE CONTINUES TO ASK THE SAME QUESTIONS OVER AND OVER AGAIN SUCH GOING OUTSIDE, OR GOING HOME. WHEN STAFF ATTEMPT TO ANSWER THE PATIENTS QUESTIONS SHE IS VERY IRRITATED SINCE THE ANSWERS ARE NOT WHAT THE PATIENT WANTS TO HEAR. SHE PACES THE RODRÍGUEZ FREQUENTLY AND IS STABLE ON HER FEET. VITALS ARE STABLE. WILL CONTINUE TO MONITOR AND PROVIDE CARE NEEDED.
[2019-07-17] MEDS ORDERED: ZOCOR20 MG PO ×2 (17:09)
--- NOTE | 2019-07-18 04:55 | NUR ---
SHIFT SUMMARY ALERT, ABLE TO MAKE NEEDS KNOWN. COOPERATIVE WITH CARE. NO C/O PAIN/DISCOMFORT. EAGER TO GO HOME. NO SEIZURE ACTIVITY NOTED. INDEPENDENT IN ROOM/HALLWAY /c STEADY GAIT. APPEARED CALM WITHOUT ANY AGITATION OR REPETITIVE QUESTIONS. VSS/AFEBRILE. APPEARED TO REST MUCH OF SHIFT. BED IN LOWEST POSITION. CALL LIGHT AND BELONGINGS WITHIN REACH. WCTM. REPORT TO ONCOMING RN.
--- NOTE | 2019-07-18 12:42 | NUR ---
SHE IS CURRENTLY SITTING IN A CHAIR HAVING AN EEG. SHE EARLIER TOOK A SHOWER AND ATE BREAKFAST. SHE ALSO DRANK EXTRA COFFEE AND TOOK HER AM MEDS. SHE HAS NO SHORT TERM MEMORY. SHE REPEATEDLY ASKS THE SAME QUESTIONS OVER AND OVER AGAIN. SHE WANTS TO GO HOME. SHE SAID SHE WAS BEING PUNISHED HAVING TO STAY HERE. EXPLAINED SHE IS NOT BEING PUNISHED. VSS. UP AD MIL[place]RO. SHE IS VERY AMBULATORY.
[2019-07-18] MEDS ORDERED: ASPI81CH PO ×2 (16:01)
[2019-07-18] MEDS ORDERED: LEVE500 PO ×2 (16:02)
--- NOTE | 2019-07-18 16:19 | NUR ---
DISCHARGED TO HOME WITH DAUGHTER. SHE HAS HER BELONGINGS AND INSTRUCTIONS. RX FAXED TO [facility]. SHE HAD A PARTIAL EEG. SHE REFUSED MOST OF IT THE MAP CLERK SAID.
== END 2019-07-18 16:21 | disposition home health service (06) ==
LOC: ER 21:01 → MEDS 21:03
PROVIDERS: Emergency Medicine; ADMIT Internal Medicine
DX: R56.9 Unspecified convulsions (principal); R55 Syncope and collapse; I67.9 Cerebrovascular disease, unspecified; F01.50 Vascular dementia, unspecified severity, without behavioral disturbance, psychotic disturbance, mood disturbance, and anxiety; R29.6 Repeated falls; M62.84 Sarcopenia; E86.0 Dehydration; I10 Essential (primary) hypertension; M81.0 Age-related osteoporosis without current pathological fracture; E78.5 Hyperlipidemia, unspecified; Z86.19 Personal history of other infectious and parasitic diseases; Z86.73 Personal history of transient ischemic attack (TIA), and cerebral infarction without residual deficits
CPT/HCPCS: 0099U; 36415; 71045; 80053; 81003; 83605; 83735; 85025; 85027; 93005; 93010; 93306; 93880; 95819; 96365; 96372; 97110; 97116; 97162; 97165; 97535; 99285-25; A9270-GY; G0378; J1650; J1953; J7030

== ENCOUNTER → 2020-05-23 | Outpatient (CLI) | payer OTHER ==
[~2020-05-23] MED LIST changes: +ASPI81CH PO; +LEVE500 PO; +ZOCOR20 MG PO
== END | disposition home or self-care (01) ==
LOC: LAB 15:00 → LAB SHORT 15:00
DX: M54.5 Low back pain (principal); R41.82 Altered mental status, unspecified
CPT/HCPCS: 87086

== ENCOUNTER 2020-10-29 08:49 | Emergency (ER) | payer OTHER ==
[~2020-10-29] VITALS: Ht 165.1 cm; Wt 51.7 kg
[2020-10-29] MEDS ORDERED: Valtrex1000 MG PO (09:25)
== END 2020-10-29 09:50 | disposition home or self-care (01) ==
LOC: ER 08:49
DX: R21 Rash and other nonspecific skin eruption (principal); L29.9 Pruritus, unspecified; E11.9 Type 2 diabetes mellitus without complications; E78.5 Hyperlipidemia, unspecified; Z79.82 Long term (current) use of aspirin; Z79.899 Other long term (current) drug therapy; Z87.891 Personal history of nicotine dependence
CPT/HCPCS: 99282

== ENCOUNTER → 2021-07-15 | Outpatient (CLI) | payer OTHER ==
[2021-07-15 18:59] LABS: BASOPHILS ABSOLUTE AUTO 0.07 K/mm3 (0.00-0.23); BASOPHILS PERCENT AUTO 1 % (0-2); EOSINOPHILS ABSOLUTE AUTO 0.26 K/mm3 (0.00-0.68); EOSINOPHILS PERCENT AUTO 5 % (0-6); Hematocrit 35.6 % (33.0-51.0); Hemoglobin 11.8 g/dL (11.5-16.0); IMMATURE GRAN ABSOLUTE AUTO 0.01 K/mm3 (0.00-0.10); IMMATURE GRAN PERCENT AUTO 0 % (0-1); LYMPHOCYTES PERCENT AUTO 31 % (21-46); MONOCYTES ABSOLUTE AUTO 0.54 K/mm3 (0.16-1.47); MONOCYTES PERCENT AUTO 11 % (4-13); Mean Corpuscular HGB 32.7 pg (26.0-34.0); Mean Corpuscular HGB Conc 33.1 g/dL (31.5-36.5); Mean Corpuscular Volume 99 fL (80-100); Mean Platelet Volume 10.5 fL (9.1-12.4); NEUTROPHILS ABSOLUTE AUTO 2.53 K/mm3 (1.96-9.15); NEUTROPHILS PERCENT AUTO 52 % (41-73); Platelet Count 144 K/mm3 (150-400); RDW Coefficient Variation 12.2 % (11.7-14.2); RDW Standard Deviation 44.2 fL (35.1-46.3); Red Blood Cell Count 3.61 M/mm3 (3.80-5.20); White Blood Cell Count 4.91 K/mm3 (4.00-11.30)
[2021-07-15 19:35] LABS: Albumin, Blood 3.6 g/dL (3.4-5.0); Albumin/Globulin Ratio 0.8 (0.8-1.8); Bilirubin, Total 0.4 mg/dL (0.1-1.0); Bun/Creatinine Ratio 32.5 (12.0-20.0); Calcium, Blood 9.1 mg/dL (8.5-10.1); Creatinine, Blood 0.95 mg/dL (0.40-1.00); Free Thyroxine 1.03 ng/dL (0.70-1.60); Globulin, Blood 4.5 g/dL (2.2-4.0); Potassium, Blood 4.3 mmol/L (3.5-5.5); Thyroid Stimulating Hormone 1.98 uIU/mL (0.360-4.800); Total Protein, Blood 8.1 g/dL (6.4-8.2)
[2021-07-16 09:13] LABS: HIV AB/P24 AG SCREEN Non Reactive (Non Reactive)
== END | disposition home or self-care (01) ==
LOC: LAB SHORT 17:51 → LAB 17:51
PROVIDERS: Family Medicine
DX: F03.90 Unspecified dementia, unspecified severity, without behavioral disturbance, psychotic disturbance, mood disturbance, and anxiety (principal)
CPT/HCPCS: 80053; 82607; 82746; 84439; 84443; 85025; 86592; 87389

== ENCOUNTER 2021-08-31 12:44 | Emergency (ER) | payer OTHER ==
[~2021-08-31] VITALS: Ht 170.2 cm; Wt 54.4 kg
== END 2021-08-31 13:20 | disposition home or self-care (01) ==
LOC: ER 12:44
DX: B02.29 Other postherpetic nervous system involvement (principal); Z79.899 Other long term (current) drug therapy; Z87.891 Personal history of nicotine dependence; Z79.82 Long term (current) use of aspirin
CPT/HCPCS: 99283

== ENCOUNTER 2022-02-18 01:00 | Emergency (ER) | payer OTHER ==
[~2022-02-18] VITALS: Ht 170.2 cm; Wt 54.4 kg
[~2022-02-18 01:00] MED LIST changes: +FUROSEMIDE20 MG PO; +NEURONTIN300 MG; +Prinivil10 MG PO
== END 2022-02-18 02:24 | disposition home or self-care (01) ==
LOC: ER 01:00
DX: B02.29 Other postherpetic nervous system involvement (principal); R51.9 Headache, unspecified; F03.90 Unspecified dementia, unspecified severity, without behavioral disturbance, psychotic disturbance, mood disturbance, and anxiety; E78.5 Hyperlipidemia, unspecified; Z79.899 Other long term (current) drug therapy; Z79.82 Long term (current) use of aspirin; Z87.891 Personal history of nicotine dependence
CPT/HCPCS: A9270

== ENCOUNTER 2022-06-24 16:27 | Emergency (ER) | payer OTHER ==
[~2022-06-24] VITALS: Ht 170.2 cm; Wt 54.4 kg
== END 2022-06-24 19:08 | disposition left against medical advice (07) ==
LOC: ER 16:27
DX: R05.9 Cough, unspecified (principal); Z53.21 Procedure and treatment not carried out due to patient leaving prior to being seen by health care provider
CPT/HCPCS: 99281

== ENCOUNTER 2022-09-14 04:16 | Observation (INO) | payer OTHER ==
[~2022-09-14] VITALS: Ht 152.4 cm; Wt 54.4 kg
[~2022-09-14 04:16] MED LIST changes: +KEPPRA XR750 MG PO; -LEVE500 PO; -NEURONTIN300 MG
[2022-09-14] MEDS ORDERED: [UNRECOGNIZED DRUG - REMARK] (04:49)
[2022-09-14] MEDS ORDERED: BLOOD PRESSURE MED (04:49)
[2022-09-14 05:00] LABS: BASOPHILS ABSOLUTE AUTO 0.04 K/mm3 (0.00-0.23); BASOPHILS PERCENT AUTO 1 % (0-2); EOSINOPHILS ABSOLUTE AUTO 0.03 K/mm3 (0.00-0.68); EOSINOPHILS PERCENT AUTO 0 % (0-6); Hematocrit 29.6 % (33.0-51.0); Hemoglobin 10.2 g/dL (11.5-16.0); IMMATURE GRAN ABSOLUTE AUTO 0.01 K/mm3 (0.00-0.10); IMMATURE GRAN PERCENT AUTO 0 % (0-1); LYMPHOCYTES PERCENT AUTO 14 % (21-46); MONOCYTES ABSOLUTE AUTO 0.45 K/mm3 (0.16-1.47); MONOCYTES PERCENT AUTO 7 % (4-13); Mean Corpuscular HGB 32.4 pg (26.0-34.0); Mean Corpuscular HGB Conc 34.5 g/dL (31.5-36.5); Mean Corpuscular Volume 94 fL (80-100); Mean Platelet Volume 10.2 fL (9.1-12.4); NEUTROPHILS PERCENT AUTO 78 % (41-73); Platelet Count 148 K/mm3 (150-400); RDW Coefficient Variation 13.5 % (11.7-14.2); RDW Standard Deviation 46.4 fL (35.1-46.3); Red Blood Cell Count 3.15 M/mm3 (3.80-5.20); White Blood Cell Count 6.93 K/mm3 (4.00-11.30)
[2022-09-14 05:17] LABS: Albumin, Blood 3.4 g/dL (3.4-5.0); Bilirubin, Total 0.8 mg/dL (0.1-1.0); Bun/Creatinine Ratio 39.1 (12.0-20.0); Calcium, Blood 8.2 mg/dL (8.5-10.1); Creatinine, Blood 0.77 mg/dL (0.40-1.00); Globulin, Blood 3.4 g/dL (2.2-4.0); Potassium, Blood 3.5 mmol/L (3.5-5.5); Total Protein, Blood 6.8 g/dL (6.4-8.2)
[2022-09-14 05:52] LABS: Source, Urine Straight Cath
[2022-09-14 05:55] LABS: Bilirubin, Urine Neg (Neg); Blood, Urine 1+ (Neg); Glucose Qualitative, Urine Neg (Neg); Ketones, Urine 1+ (Neg); Leukocyte Esterase, Urine Neg (Neg); Nitrite, Urine Neg (Neg); Protein, Urine 1+ (Neg); Urobilinogen, Urine NORM (Normal)
[2022-09-14 06:05] LABS: Appearance, Urine Clear (Clear); Color, Urine Yellow (P-Yellow)
[2022-09-14 06:09] LABS: Red Blood Cells, Urine 0-2 /hpf (0-2); White Blood Cells, Urine 0-2 /hpf (0-5)
[2022-09-14 06:10] LABS: Squamous Epithelial Cells Rare /hpf (Few)
[2022-09-14 06:11] LABS: Bacteria Rare /hpf; Renal Epithelial Rare /hpf (0-Rare); Transitional Epithelial Cells Rare /hpf (0-Rare)
[2022-09-14 06:12] LABS: Mucus Light (0-Heavy)
[2022-09-14 12:45] LABS: Creatine Kinase MB 8.4 ng/mL (0.0-3.6); Creatine Kinase MB Index 3.2 (0.0-4.0)
[2022-09-14 14:30] VITALS: BP 121/97
[2022-09-14 15:20] VITALS: BP 111/80
--- NOTE | 2022-09-14 17:46 | NUR ---
RN NOTE MS HELMS WAS TRANSFERED FROM ROOM 302 TO ROOM 347. ISABEL, FRIEND AT BEDSIDE. MS HELMS IS VERY CONFUSED AND FORGETFUL. IN SOFT RESTRAINTS, PULLING AT RESTRAINTS. BED ALARM ON, BED LOW. PT STATED THAT SHE WANTS TO GET UP, UNABLE TO BE ORIENTATED TO HER ENVIRONMENT. SZ PADS ON BED.
[2022-09-14 19:39] VITALS: BP 107/55
[2022-09-14] MEDS ORDERED: DONEPEZIL HCL5 MG PO (20:06)
[2022-09-14] MEDS ORDERED: ATOR40TA PO (20:07)
--- NOTE | 2022-09-14 21:30 | NUR ---
PT IS CONFUSED EXCEPT TO SELF, IS ANXIOUS/AGGITATED, MAKES REPEATED ATTEMPTS OOB BY SELF AND IS NOT REDIRECTABLE. SHE'S EXTREMELY FORGETFULL W/VERY LIMITED SHORT TERM MEMORY AND DOESN'T RETAIN INFORMATION DESPITE FREQUENT REMINDERS AND EDUCATION. SHE PULLS AT LINES AND RESTRAINTS AND DOESN'T CALM W/EXPLANATION. JOAN NOTIFIED W/NEW ORDERS RECIEVED FOR HALDOL 2.5MG IV X1 W/OK TO REPEAT X1 PRN. 1ST DOSE RECIEVED, WILL RE-EVALUATE FOR EFFECT.
[2022-09-15 03:03] VITALS: BP 131/70
--- NOTE | 2022-09-15 05:00 | NUR ---
SUMMARY: PT BEGAN SHIFT VERY CONFUSED W/LIMITED SHORT TERM MEMORY AND NO RETENTION OF INFORMATION. SHE WAS ANXIOUS/AGGITATED, MADE REPEATED ATTEMPTS OOB BY SELF AND COULDN'T FOLLOW INSTRUCTIONS OR BE REDIRECTED. IV HALDOL WAS RECIEVED FOR CALMING EFFECT AND PT WAS ABLE TO SLEEP/REST. WRIST RESTRAINTS REMAINED INTACT FOR FALL RISK, AMS AND IMPULSIVITY WA. TURN SCHEDULE MAINTAINED BUT PT WAS OBSERVED ABLE TO GRADUALLY REPOSITION HERSELF DESPITE RESTRAINTS. SHE BECAME SLIGHTLY MORE SENSICAL AND COMPLIANT T/O NOCTE BUT CAN BE LABILE AND REMAINS FORGETFULL AT TIMES. PT WAS UP W/1PA TO BSC AND HAD ATTENDS CHANGED PRN. SEIZURE PRECAUTIONS ARE IN PLACE AND NEURO OBS ARE STABLE. 1/2 NS INFUSES AT 60 ML/HR AND PO FLUIDS/NUTRITION OFFERED. NO ACUTE CHANGES, VSS/AFEBRILE. WCTM AND REPORT TO DAY RN.
[2022-09-15 05:53] LABS: BASOPHILS ABSOLUTE AUTO 0.02 K/mm3 (0.00-0.23); BASOPHILS PERCENT AUTO 0 % (0-2); EOSINOPHILS ABSOLUTE AUTO 0.05 K/mm3 (0.00-0.68); EOSINOPHILS PERCENT AUTO 1 % (0-6); Hematocrit 30.6 % (33.0-51.0); Hemoglobin 10.7 g/dL (11.5-16.0); IMMATURE GRAN ABSOLUTE AUTO 0.01 K/mm3 (0.00-0.10); IMMATURE GRAN PERCENT AUTO 0 % (0-1); LYMPHOCYTES ABSOLUTE AUTO 0.82 K/mm3 (0.84-5.20); LYMPHOCYTES PERCENT AUTO 17 % (21-46); MONOCYTES ABSOLUTE AUTO 0.54 K/mm3 (0.16-1.47); MONOCYTES PERCENT AUTO 11 % (4-13); Mean Corpuscular HGB 32.2 pg (26.0-34.0); Mean Corpuscular Volume 92 fL (80-100); Mean Platelet Volume 10.2 fL (9.1-12.4); NEUTROPHILS PERCENT AUTO 71 % (41-73); Platelet Count 135 K/mm3 (150-400); RDW Coefficient Variation 13.1 % (11.7-14.2); RDW Standard Deviation 43.9 fL (35.1-46.3); Red Blood Cell Count 3.32 M/mm3 (3.80-5.20); White Blood Cell Count 4.94 K/mm3 (4.00-11.30)
[2022-09-15 06:23] LABS: Albumin, Blood 3.1 g/dL (3.4-5.0); Albumin/Globulin Ratio 0.9 (0.8-1.8); Bilirubin, Total 0.6 mg/dL (0.1-1.0); Calcium, Blood 8.4 mg/dL (8.5-10.1); Creatinine, Blood 0.82 mg/dL (0.40-1.00); Globulin, Blood 3.4 g/dL (2.2-4.0); Potassium, Blood 3.6 mmol/L (3.5-5.5); Total Protein, Blood 6.5 g/dL (6.4-8.2)
[2022-09-15 07:34] VITALS: BP 134/56
[2022-09-15] MEDS ORDERED: ASPI81CH PO (14:04)
[2022-09-15] MEDS ORDERED: MELATONIN5 M1 PO (14:23)
--- NOTE | 2022-09-15 17:07 | NUR ---
PT AWAKE AT START OF SHIFT, SITTING UP IN BED. PT IS ALERT, BUT CONFUSED. DR SHAW IN TO SEE PT AND DISCUSS PLAN OF CARE. PT IMPROVED AND ABLE TO D/C HOME. SEVERAL FAMILY TO TO VISIT. FAMILY INFORMED OF D/C ORDERS AND LATER RETURNED TO TAKE PT HOME. PT UP TO BSC WITH 1P ASSIST. NO C/O PAIN. PT VERY ANXIOUS TO GO HOME. DAUGHTER CALLED TO BRING CLOTHES BACK IN FOR D/C. DAUGHTER ASSISTED PT IN GETTING DRESSED. PT ASSISTED OUT TO DAUGHTERS CAR VIA W/C.
== END 2022-09-15 15:30 | disposition home or self-care (01) ==
LOC: ER 04:16 → MEDS 04:17 → ENPENDDIS 09-15 10:13 → MEDS 09-15 15:30
PROVIDERS: Student in an Organized Health Care Education/Training Program; ADMIT Internal Medicine
DX: G40.909 Epilepsy, unspecified, not intractable, without status epilepticus (principal); G92.8 Other toxic encephalopathy; E86.0 Dehydration; E87.1 Hypo-osmolality and hyponatremia; F01.50 Vascular dementia, unspecified severity, without behavioral disturbance, psychotic disturbance, mood disturbance, and anxiety; E43 Unspecified severe protein-calorie malnutrition; M62.82 Rhabdomyolysis; R54 Age-related physical debility; I10 Essential (primary) hypertension; E78.5 Hyperlipidemia, unspecified; B02.29 Other postherpetic nervous system involvement; Z86.73 Personal history of transient ischemic attack (TIA), and cerebral infarction without residual deficits; G47.00 Insomnia, unspecified; Z79.899 Other long term (current) drug therapy
CPT/HCPCS: 36415; 51701; 70450; 80053; 81001; 82550; 82553; 83880; 84145; 84295; 84484; 85025; 93005; 93010; 96374; 99285-25; A9270; G0378; J1630; J7030; P9612

== ENCOUNTER 2023-01-03 12:27 | Emergency (ER) | payer OTHER ==
[~2023-01-03] VITALS: Ht 170.2 cm; Wt 47.2 kg
[~2023-01-03 12:27] MED LIST changes: +ATOR40TA PO; +BLOOD PRESSURE MED; +DONEPEZIL HCL5 MG PO; +[UNRECOGNIZED DRUG - REMARK]
[2023-01-03 12:52] LABS: BASOPHILS ABSOLUTE AUTO 0.06 K/mm3 (0.00-0.23); BASOPHILS PERCENT AUTO 1 % (0-2); EOSINOPHILS ABSOLUTE AUTO 0.11 K/mm3 (0.00-0.68); EOSINOPHILS PERCENT AUTO 2 % (0-6); Hematocrit 34.8 % (33.0-51.0); Hemoglobin 11.7 g/dL (11.5-16.0); IMMATURE GRAN ABSOLUTE AUTO 0.01 K/mm3 (0.00-0.10); IMMATURE GRAN PERCENT AUTO 0 % (0-1); LYMPHOCYTES ABSOLUTE AUTO 1.56 K/mm3 (0.84-5.20); LYMPHOCYTES PERCENT AUTO 29 % (21-46); MONOCYTES ABSOLUTE AUTO 0.65 K/mm3 (0.16-1.47); MONOCYTES PERCENT AUTO 12 % (4-13); Mean Corpuscular HGB 32.8 pg (26.0-34.0); Mean Corpuscular HGB Conc 33.6 g/dL (31.5-36.5); Mean Corpuscular Volume 98 fL (80-100); Mean Platelet Volume 10.1 fL (9.1-12.4); NEUTROPHILS ABSOLUTE AUTO 3.08 K/mm3 (1.96-9.15); NEUTROPHILS PERCENT AUTO 56 % (41-73); Platelet Count 150 K/mm3 (150-400); RDW Coefficient Variation 13.1 % (11.7-14.2); RDW Standard Deviation 46.6 fL (35.1-46.3); Red Blood Cell Count 3.57 M/mm3 (3.80-5.20); White Blood Cell Count 5.47 K/mm3 (4.00-11.30)
[2023-01-03 13:15] LABS: Albumin, Blood 3.6 g/dL (3.4-5.0); Bilirubin, Total 0.4 mg/dL (0.1-1.0); Bun/Creatinine Ratio 28.2 (12.0-20.0); Calcium, Blood 8.8 mg/dL (8.5-10.1); Creatinine, Blood 0.96 mg/dL (0.40-1.00); Globulin, Blood 3.5 g/dL (2.2-4.0); Potassium, Blood 4.3 mmol/L (3.5-5.5); Total Protein, Blood 7.1 g/dL (6.4-8.2)
[2023-01-03] MEDS ORDERED: Prinivil10 MG PO (13:41)
[2023-01-03] MEDS ORDERED: NEURONTIN300 MG PO (13:41)
[2023-01-03] MEDS ORDERED: ATOR40TA PO (13:42)
[2023-01-03] MEDS ORDERED: DONEPEZIL HCL5 MG PO (13:42)
[2023-01-03] MEDS ORDERED: Keppra750 MG PO (13:43)
[2023-01-03 17:29] VITALS: BP 140/67
== END 2023-01-03 17:30 | disposition home or self-care (01) ==
LOC: ER 12:27
PROVIDERS: Emergency Medicine
DX: R51.9 Headache, unspecified (principal); Z86.73 Personal history of transient ischemic attack (TIA), and cerebral infarction without residual deficits; Z87.891 Personal history of nicotine dependence; Z79.899 Other long term (current) drug therapy
CPT/HCPCS: 70450; 80053; 85025; 93005; 93010; 96361; 96374; 99284-25; A9270; J3010; J7030

== ENCOUNTER 2023-11-14 22:05 | Observation (INO) | payer OTHER ==
[~2023-11-14] VITALS: Ht 170.2 cm; Wt 45.4 kg
[~2023-11-14 22:05] MED LIST changes: +FURO20 PO; +Keppra750 MG PO; +VITAMIN D310 MC4 PO
[2023-11-14] MEDS ORDERED: Lactated Ringer's 1,000 ML IV ONE ×2 (22:35→23:25)
[2023-11-14 22:55] LABS: Albumin, Blood 3.3 g/dL (3.4-5.0); Albumin/Globulin Ratio 0.9 (0.8-1.8); Bilirubin, Total 0.4 mg/dL (0.1-1.0); Bun/Creatinine Ratio 37.2 (12.0-20.0); Calcium, Blood 8.8 mg/dL (8.5-10.1); Creatinine, Blood 1.45 mg/dL (0.40-1.00); Globulin, Blood 3.7 g/dL (2.2-4.0); Magnesium, Blood 2.5 mg/dL (1.6-2.4); Potassium, Blood 4.3 mmol/L (3.5-5.5)
[2023-11-14 23:00] LABS: BASOPHILS ABSOLUTE AUTO 0.04 K/mm3 (0.00-0.23); BASOPHILS PERCENT AUTO 0 % (0-2); EOSINOPHILS ABSOLUTE AUTO 0.01 K/mm3 (0.00-0.68); EOSINOPHILS PERCENT AUTO 0 % (0-6); Hematocrit 27.8 % (33.0-51.0); Hemoglobin 9.1 g/dL (11.5-16.0); IMMATURE GRAN ABSOLUTE AUTO 0.03 K/mm3 (0.00-0.10); IMMATURE GRAN PERCENT AUTO 0 % (0-1); LYMPHOCYTES ABSOLUTE AUTO 0.66 K/mm3 (0.84-5.20); LYMPHOCYTES PERCENT AUTO 7 % (21-46); MONOCYTES ABSOLUTE AUTO 0.44 K/mm3 (0.16-1.47); MONOCYTES PERCENT AUTO 5 % (4-13); Mean Corpuscular HGB 32.5 pg (26.0-34.0); Mean Corpuscular HGB Conc 32.7 g/dL (31.5-36.5); Mean Corpuscular Volume 99 fL (80-100); NEUTROPHILS ABSOLUTE AUTO 7.92 K/mm3 (1.96-9.15); NEUTROPHILS PERCENT AUTO 87 % (41-73); Platelet Count 152 K/mm3 (150-400); RDW Coefficient Variation 13.2 % (11.7-14.2); RDW Standard Deviation 47.9 fL (35.1-46.3)
[2023-11-14 23:16] LABS: International Normalized Ratio 1.01; Prothrombin Time Results 10.8 Sec (9.7-11.5)
[2023-11-14] MEDS ORDERED: CefTRIAXone Sodium 1,000 MG in NS 100 ML IV ONE (23:25)
[2023-11-15 00:31] LABS: Bilirubin, Urine Neg (Neg); Blood, Urine 4+ (Neg); Glucose Qualitative, Urine Neg (Neg); Ketones, Urine 2+ (Neg); Leukocyte Esterase, Urine Neg (Neg); Nitrite, Urine Neg (Neg); Protein, Urine 4+ (Neg); Source, Urine Clean Catch; Urobilinogen, Urine NORM (Normal)
[2023-11-15 00:42] LABS: Appearance, Urine Turbid (Clear); Color, Urine Brown (P-Yellow)
[2023-11-15 00:43] LABS: Bacteria Many /hpf; Red Blood Cells, Urine TNTC /hpf (0-2); Squamous Epithelial Cells Not Seen /hpf (Few); White Blood Cells, Urine TNTC /hpf (0-5)
[2023-11-15 02:15] VITALS: BP 124/64
[2023-11-15] MEDS ORDERED: LORazepam 2 MG/ML 1ML Injection IV PRN (03:30)
[2023-11-15] MEDS ORDERED: Morphine Sulfate 20 MG/1ML 1 ML Oral Syringe SL PRN (03:30)
[2023-11-15] MEDS ORDERED: Scopolamine Hydrobromide Patch TOP PRN (03:30)
[2023-11-15] MEDS ORDERED: Ondansetron HCl 2 MG / ML 2ML Vial IV PRN (03:30)
[2023-11-15] MEDS ORDERED: Atropine Sulfate 1% Opth Soln 2ML BTL SL PRN (03:30)
[2023-11-15] MEDS ORDERED: LORazepam 1 MG Tab PO PRN (03:30)
--- NOTE | 2023-11-15 06:06 | NUR ---
SHIFT SUMMARY: Pt is admitted for comfort care and is a DNR. is alert and able to make some needs known. Came to the floor about 0300 form the ED. is alert to self. Denies pain or discomfort when asked. ADLs have been 1-2p depending on how cooperative she is wanting to be. Has attempted to get out of bed a couple of times and placed her socks back on that she came back into the hospital in. had to redress and redirect several times at times became difficult with increased agitation.
--- NOTE | 2023-11-15 11:18 | NUR ---
PATIENT MEDICATED FOR PAIN, DAUGHTER CONFIRMING WITH PALLIATIVE AND DR MCGHEE THAT SHE WISHES TO PERSUE HOSPICE/COMFORT CARE
--- NOTE | 2023-11-15 11:30 | NUR ---
Pt resting some grimace and aggitation. Review of the past few months with daughter. She is showing considerable fatigue and stress frm caregiving. She has been spending the night with her mother and taking her home during the day. Review of hospice with family they would like to taker her home. Advised today we need to work on symptoms and stabalizing her. Pt passing blood clots and havinig periods of increased symptoms. Review with nursing to bladder scan pt periodically. Non verbal cues suggest some possible nausea and spasm type symptoms. review strategy of care with nursing.
--- NOTE | 2023-11-15 18:31 | NUR ---
PATIENT ON COMFORT CARE. PASSING LARGE CLOTS WITH URINE INTO BRIEF, LESSENED SHIFT PROGRESSED, HOWEVER ABDOMEN BEGAN TO DISTEND AND FEEL HARD TO PALPATION. BLADDER SCAN SHOWED MINIMAL VOLUME, <100. DISCUSSED GOMEZ CATH WITH DAUGHTER WHO DECLINED THIS INTERVENTION, FEELING LIKE IT WOULD BE NOT WORTH THE DISCOMFORT. PATIENT MEDICATED FOR PAIN WITH SAMIA. RESTING COMFORTABLY IN BED WITH EYES CLOSED. FAMILY STATED SHE WILL STAY THE NIGHT.
== END 2023-11-15 23:15 ==
LOC: ER 22:05 → MEDS 22:06
PROVIDERS: Emergency Medicine; ADMIT Internal Medicine
DX: A41.9 Sepsis, unspecified organism (principal); N39.0 Urinary tract infection, site not specified; R31.9 Hematuria, unspecified; Z51.5 Encounter for palliative care; F03.90 Unspecified dementia, unspecified severity, without behavioral disturbance, psychotic disturbance, mood disturbance, and anxiety; E78.5 Hyperlipidemia, unspecified; Z79.82 Long term (current) use of aspirin; Z79.899 Other long term (current) drug therapy
CPT/HCPCS: 36415; 51701; 51798; 74177; 80053; 81001; 82272; 83605; 83690; 83735; 84145; 85025; 85610; 87086; 93005; 93010; 96365; 96375; 96376; 99285-25; A9270; G0378; J0696; J2060; J2405; J7120; Q9967